=== PATIENT | female | born 1965 | race American Indian/Alaskan Native ===

== ENCOUNTER 2018-05-22 17:00 | Emergency (ER) | payer OTHER ==
[2018-05-22 17:23] VITALS: BP 126/83; PULSE 88; RESP 20; TEMP 98.8; O2SAT 98
[2018-05-22] MEDS ORDERED: Lidocaine 1% Inj (20ml) INFIL STA (17:32)
[2018-05-22] MEDS ORDERED: Tetanus/Diphtheria Toxoids 0.5 ml Syringe IM ONE ×2 (17:32→17:42)
--- NOTE | 2018-05-22 17:37 | C.PDOC ---
History Of Present Illness Patient is a 53 year old female who presents to the ED after being sent from urgent care for a laceration repair on her right fifth digit. Patient states that she sustained the injury while grabbing onto a railing. She denies any sensory changes or other injuries. Not UTD on Tetanus Time Seen by Provider: 05/22/18 17:28 Chief Complaint (Nursing): Abnormal Skin Integrity History Per: Patient History/Exam Limitations: no limitations Current Symptoms Are (Timing): Still Present Location Of Injury: Right: Hand Recent travel outside of the [place]: No Additional History Per: Patient Past Medical History Reviewed: Historical Data, Nursing Documentation, Vital Signs Vital Signs: Last Vital Signs Temp 98.8 F 05/22/18 17:19 Pulse 88 05/22/18 17:19 Resp 20 05/22/18 17:19 BP 126/83 05/22/18 17:19 Pulse Ox 98 05/22/18 17:19 - Medical History PMH: No Chronic Diseases Surgical History: No Surg Hx Family History: States: Unknown Family Hx - Social History Hx Tobacco Use: No Hx Alcohol Use: Yes Hx Substance Use: No - Immunization History Hx Tetanus Toxoid Vaccination: No Hx Influenza Vaccination: No Hx Pneumococcal Vaccination: No Review Of Systems Skin: Positive for: Other (laceration of right fifth digit) Neurological: Negative for: Numbness Physical Exam - Physical Exam Appears: Non-toxic, No Acute Distress Skin: Normal Color, Warm, Dry, Other (right hand palmar aspect 5th digit approx. 2cm curved laceration at PIP joint ) Head: Atraumatic, Normacephalic Chest: Symmetrical, No Deformity Cardiovascular: Rhythm Regular, No Murmur Respiratory: Normal Breath Sounds, No Rales, No Rhonchi, No Wheezing Extremity: Normal ROM (right fifth digit ), Capillary Refill (less than 2 seconds ) Neurological/Psych: Oriented x3, Normal Sensation (right fifth digit ) ED Course And Treatment O2 Sat by Pulse Oximetry: 98 (on RA) Pulse Ox Interpretation: Normal Progress Note: Plan: Lidocaine 20ml INFIL. Tetanus Laceration - Laceration Repair No standard instances Wound Length (In cm): 2cm curved Anesthesia: Lidocaine 1% (3ml total ) Suture Technique And Material Used: Nylon (8 dermal 4o), Vicryl (1 subcutaneous 4o) Wound Complexity: Simple (bacitracin, dressing, and finger splinted) Disposition Counseled Patient/Family Regarding: Diagnosis, Need For Followup, Rx Given - Disposition Referrals: [facility] [Outside] Disposition: HOME/ ROUTINE Disposition Time: 18:20 Condition: STABLE Additional Instructions: FOLLOW UP WITH YOUR DOCTOR IN 1-2 DAYS USE MEDICATIONS DIRECTED SUTURE REMOVAL IN 5-7 DAYS RETURN TO ER IF YOU HAVE ANY CONCERNING SYMPTOMS Prescriptions: Acetaminophen [Tylenol 325mg tab] 650 mg PO Q6 PRN #30 tab PRN Reason: pain/fever Cephalexin [Keflex] 500 mg PO BID #14 capsule Instructions: Laceration Repair With Stitches (DC) Forms: [employer] ([place]an) Print Language: YAKUT - POA Present On Arrival: Falls Or Trauma - Clinical Impression Clinical Impression: Laceration of finger of right hand - Scribe Statement The provider has reviewed the documentation as recorded by the Chetan Donaldson All medical record entries made by the Edviniblashae were at my direction and personally dictated by me. I have reviewed the chart and agree that the record accurately reflects my personal performance of the history, physical exam, medical decision making, and the department course for this patient. I have also personally directed, reviewed, and agree with the discharge instructions and disposition.
[2018-05-22] MEDS ORDERED: Lidocaine Hydrochloride 5 ML INJ ONE (17:41)
[2018-05-22] MEDS ORDERED: Bacitracin 500 Units/gm Oint Foilpak UD ONE (18:14)
== END 2018-05-22 18:34 | disposition home or self-care (01) ==
LOC: C.ER 17:00
DX: S61.216A Laceration without foreign body of right little finger without damage to nail, initial encounter (principal); X58.XXXA Exposure to other specified factors, initial encounter